=== PATIENT | male | born 2000 | race African-American/Black ===

== ENCOUNTER 2020-02-05 18:54 | Emergency (ER) | payer OTHER, SELFPAY ==
--- NOTE | ~2020-02-05 | CT_ITS ---
EXAMINATION: CTA chest EXAM DATE: 02/05/2020 20:51 INDICATION: Heart palpitations, mid chest pain. High blood pressure. TECHNIQUE: Spiral CTA of the chest (pulmonary arteries) was performed with 100 cc Omnipaque 350 intr avenous contrast injection. Images were acquired during the pulmonary arterial phase. Coronal maxi mum intensity projection 3D-reconstructions were created by the technologist on dedicated workstation . Axial, coronal and sagittal reformatted images were reviewed. The dose-length product (DLP) for t his examination was 221.06 mGy-cm. The exposure was tailored according to patient size (auto mA exp osure control), and iterative reconstruction (ASIR) was used as additional dose reduction technique. There is no prior study for comparison. FINDINGS: Pulmonary arteries are well opacified and without intraluminal filling defects. No thora cic aortic dissection. The lungs are clear. There are no pleural or pericardial effusions. Trach eobronchial tree is patent. There is no mediastinal, hilar or axillary lymphadenopathy. There is no pneumothorax. Heart normal in size. No evidence of coronary arterial calcification. Upper abd omen is unremarkable. The bones are unremarkable. IMPRESSION: 1. No acute cardiopulmonary findings. Reviewed, dictated and finalized at location A.
[2020-02-05 19:13] VITALS: BP 125/78; PULSE 87; RESP 18; TEMP 36.6; O2SAT 100
--- NOTE | 2020-02-05 19:43 | ECG_ITS ---
Measurements Intervals [place] Rate: 78 P: 60 [place]: 132 QRS: 67 QRSD: 105 T: 62 QT: 337 QTc: 384 Interpretive Statements SINUS RHYTHM WITH SINUS ARRHYTHMIA POSSIBLE LEFT VENTRICULAR HYPERTROPHY ST ELEVATION IN DIFFUSE LEADS- CONSIDER PERICARDITIS, INJURY OR EARLY REPOLARIZATION BASELINE ARTIFACT- I, II, III, AVR, AVL, AVF ABNORMAL ECG Electronically Signed On 02-05-2020 20:54:51 CDT by Cedrick Pagan D.O.
[2020-02-05 19:53] VITALS: BP 131/97; PULSE 86; RESP 20; O2SAT 100
[2020-02-05 19:59] LABS: Basophils Percent Auto 0.4 % (0.2-1.2); Eosinophils Absolute Auto 0.2 K/mm3 (0-0.3); Eosinophils Percent Auto 2.2 % (0-4.4); Hemoglobin 15.1 g/dL (14.0-18.0); Immature Granulocyte Absolute 0.03 K/mm3 (0.00-0.031); Immature Granulocyte Percent A 0.3 % (0-0.5); Lymphocytes Absolute Auto 3.44 K/mm3 (0.9-3.2); Lymphocytes Percent Auto 36.5 % (18.3-44.2); Mean Corpuscular HGB Conc 32.8 g/dl (32-36); Mean Corpuscular Hemoglobin 29.2 pg (26-34); Mean Corpuscular Volume 88.8 fl (80-100); Mean Platelet Volume 11.5 fl (7.4-10.4); Monocytes Absolute Auto 1.4 K/mm3 (0.1-0.6); Monocytes Percent Auto 14.4 % (2.6-8.5); Neutrophils Absolute Auto 4.3 K/mm3 (1.3-6.7); Neutrophils Percent Auto 46.2 % (45.5-73.1); Platelet Count Result 211 k/mm3 (150-375); Red Blood Count 5.18 M/mm3 (4.6-6.20); Red Cell Distribution Width 12.7 % (11.5-14.5); White Blood Count 9.4 K/mm3 (4.5-10.0)
--- NOTE | 2020-02-05 20:01 | ED.GENADULT ---
HPI - General Adult General Chief complaint: Recheck/Abnormal Lab/Rx Stated complaint: high bp Time Seen by Provider: 02/05/20 19:12 Source: patient and family (MOTHER) Mode of arrival: ambulatory Limitations: no limitations History of Present Illness HPI narrative: Patient presents with chief complaint of concern for intermittent dizziness and feelings of chest pressure and palpitation. Patient states that he saw his primary care provider on for further management of his symptoms he was unable to have lab work performed due to his father being transferred to an ICU in [place] for aortic rupture. 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 Patient states that he cannot stand and work for more than 2 hours before having symptoms. Patient states 2 years ago he had an episode of pericarditis so they are scared that that is returning. Patient states his blood pressure generally warranted in 150-160s over 100-120s. Patient states that he took a tablet of his lisinopril hydrochlorothiazide tablet and felt that he had some itching in his throat so he called his mother who came and picked him up from work and brought him to the emergency department. Patient does not have any itching or swelling to his throat at this time. Patient did not take any medications to alleviate those symptoms. Presently patient does not have any dizziness, chest pain, palpitations, shortness of breath, blurry vision, headache or any other symptoms. Patient and mother are concerned for patient's cardiac health due to his father's present condition. Patient denies any drug use, fevers, chills, nausea, vomiting, diarrhea. Patient denies having any other known health issues. Related Data Allergies Allergy/AdvReac Type Severity Reaction Status Date / Time No Known Allergies Allergy Mild Verified 11/11/18 21:47 Review of Systems Review of Systems: Narrative: CONSTITUTIONAL: Denies fever, chills, or sweats. EYES: Reports intermittent blurry vision denies visual changes, redness, or discharge. ENT: Denies rhinorrhea, congestion, sore throat, or otalgia. CARDIOVASCULAR: Reports intermittent chest pain, palpitations denies edema. RESPIRATORY: Denies cough or dyspnea. GASTROINTESTINAL: Denies abdominal pain, nausea, vomiting, or diarrhea. GENITOURINARY: Denies dysuria or hematuria. SKIN: Denies rash or itching. MUSCULOSKELETAL: Denies back pain, joint pain, or myalgia. NEUROLOGIC: Denies headache, numbness, dizziness, or weakness. PSYCHIATRIC: Denies anxiety or depression. [facility] Past Medical History Medical History (Updated 02/05/20 @ 21:13 by Tabitha Michelle PA-C) Hypertension Pericarditis Social History Social History (Updated 02/05/20 @ 21:09 by Tabitha Michelle PA-C) Smoking status: Never smoker Alcohol intake: never Other substance usage details: none Exam Narrative: Exam Narrative: GENERAL: Well-appearing, well-nourished, and in no acute distress. HEAD: Normocephalic, atraumatic. EYES: PERRLA and EOMI. ENT: Nares clear, no rhinorrhea or epistaxis. Mucous membranes moist. Oropharynx without tonsillar hypertrophy exudate or other lesions. Bilateral TMs pearly brock nonbulging NECK: Supple. No adenopathy or masses. CHEST: Clear to auscultation. No respiratory distress. No wheezes rales or rhonchi HEART: Regular rate and rhythm. No murmur heard. No chest pain with positional movements. Normal peripheral pulses. ABDOMEN: Soft, nontender, nondistended, normal active bowel sounds. EXTREMITIES: Normal range of motion. No edema. SKIN: Warm, dry, no rash. NEURO: No focal deficits. Alert and oriented x3. PSYCH: Normal mood and affect. Course Course Emergency Course: Review note from Dr. Darby's office on . Patient had a Holter monitor ordered which was supposed to be worn at time of work to evaluate states possible changes in cardia
[2020-02-05 20:09] LABS: Alanine Aminotransferase 18 U/L (4-50); Albumin Level 5.3 g/dL (3.5-5.1); Alkaline Phosphatase 78 U/L (38-126); Aspartate Amino Transferase 26 U/L (17-59); Bilirubin,Total 0.8 mg/dL (0.2-1.3); Blood Urea Nitrogen 21 mg/dL (9-20); Carbon Dioxide 27 mmol/L (22-30); Chloride 98 mmol/L (98-107); Estimated CRCL calculation 85 ml/min; Estimated Glomerular Filt Rate > 60; Glucose 86 mg/dL (75-110); Potassium 3.7 mmol/L (3.4-5.0); Sodium 140 mmol/L (137-145)
[2020-02-05 20:13] LABS: Add Urine Microscopic? NO; Appearance Urine Clear (Clear); Bilirubin Urine Negative (Negative); Blood Urine Negative (Negative); Color Urine Yellow (Yellow); Glucose Urine UA Negative (Negative); Ketones Urine Negative (Negative); Leukocyte Esterase Ur Negative LEU/UL (Negative); Nitrate Urine Negative (Negative); Protein Urine Negative (Negative); Specific Grav Ur 1.023 (1.001-1.035); Urobilinogen Urine Negative mg/dL (<2.0)
[2020-02-05 20:21] LABS: Troponin I < 0.012 ng/mL (0.000-0.034)
[2020-02-05 20:45] LABS: Amphetamine Screen Urine Negative (Negative); Barbiturate Screen Urine Negative (Negative); Benzodiazepines Screen Urine Negative (Negative); Cannabinoid Screen Urine Negative (Negative); Cocaine Screen Urine Negative (Negative); Methadone Screen Urine Negative (Negative); Opiate Screen Urine Negative (Negative); Phencyclidine Screen Urine Negative (Negative)
[2020-02-05 21:23] LABS: Free T4 Free Thyroxine Reflex 1.13 ng/dL (0.78-2.19)
[2020-02-05 21:40] VITALS: BP 148/90; PULSE 80; RESP 18; TEMP 36.7; O2SAT 98
== END 2020-02-05 21:41 | disposition home or self-care (01) ==
PROVIDERS: Physician Assistant; Emergency Provider Emergency Medicine; PCP Family Medicine
DX: R07.89 Other chest pain (principal); H53.8 Other visual disturbances; I10 Essential (primary) hypertension; R94.31 Abnormal electrocardiogram [ECG] [EKG]
CPT/HCPCS: 36415; 71275; 80053; 80307; 81003; 84439; 84443; 84480; 84484; 85025; 93005; 99284; Q9967

== ENCOUNTER 2020-02-08 09:19 | Outpatient (CLI) | payer OTHER, SELFPAY ==
--- NOTE | 2020-02-14 11:04 | WPDHOLTEREM ---
Holter/Event Monitor Holter/Event Monitor Date of procedure: 02/08/20 Procedure Type: 24 hour holter monitor Indications: Chest pain Conclusion: 1. 24 hour holter monitor on 02/08/20. 2. Underlying rhythm is sinus rhythm with sinus arrhythmia. HR range 35-179 bpm; average HR 69 bpm. 3. No premature supraventricular complexes. No supraventricular tachycardia. 4. There are 3 premature ventricular complexes. No ventricular tachycardia. 5. No sinoatrial or atrioventricular blocks. No significant pauses greater than 2 seconds. 6. Patient reports symptoms of palpitations and dizziness which demonstrate sinus rhythm, HR range 72-114 bpm.
== END 2020-02-08 09:20 | disposition home or self-care (01) ==
PROVIDERS: PCP Family Medicine; Visit Provider Nurse Practitioner Family
DX: R07.9 Chest pain, unspecified (principal)
CPT/HCPCS: 93225; 93226

== ENCOUNTER 2020-02-14 15:56 | Outpatient (CLI) | payer OTHER, SELFPAY ==
[2020-02-14 17:23] LABS: Free T4 Free Thyroxine 0.85 ng/mL (0.78-2.19)
== END 2020-02-14 15:57 | disposition home or self-care (01) ==
PROVIDERS: PCP Family Medicine; Visit Provider Physician Assistant Medical
DX: R79.89 Other specified abnormal findings of blood chemistry (principal)
CPT/HCPCS: 36415; 84439; 84443

== ENCOUNTER 2020-05-04 14:03 | Emergency (ER) | payer OTHER, MEDICAID, SELFPAY ==
--- NOTE | ~2020-05-04 | XR_ITS ---
XR chest 2V DATE: 05/04/2020 15:39 INDICATION: Dizziness when standing. Orthostatic hypotension. TECHNIQUE: PA and lateral views COMPARISON: 07/21/2017 two-view chest FINDINGS: Normal heart size. No hilar or mediastinal enlargement. No pulmonary infiltrate or consolid ation, pleural effusion or pulmonary vascular congestion or pneumothorax. Included skeletal structure s are unremarkable other than mild scoliosis. IMPRESSION: No active cardiopulmonary disease Reviewed, dictated and finalized at location A.
[2020-05-04 14:11] VITALS: BP 130/98; PULSE 84; RESP 18; TEMP 37.1; O2SAT 100
[2020-05-04 14:27] VITALS: O2SAT 100
--- NOTE | 2020-05-04 14:30 | ED.DIZZY ---
HPI - Dizziness General Chief Complaint: Syncope Stated Complaint: feels tingling, high bp Time Seen by Provider: 05/04/20 14:27 History of Present Illness HPI Narrative: Near syncopal event today at work. He has had this happen numerous times in the past. 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 He was frequently found to have orhtostatic hypotension. He reports not staying as well hydrated as he used to. Satishamparonly says that he had chest pain, but states that he has this all the time. Related Data Allergies Allergy/AdvReac Type Severity Reaction Status Date / Time lisinopril AdvReac Intermediate swelling Verified 05/01/20 09:33 in throat Review of Systems Review of Systems: All systems reviewed & are unremarkable except as noted in HPI and below Constitutional: Constitutional: Denies chills and Denies fever(s) Cardiovascular: Cardiovascular: Reports chest pain Respiratory: Respiratory: Reports dyspnea Gastrointestinal: Gastrointestinal: Denies abdominal pain, Denies nausea and Denies vomiting Neurologic: Reports dizziness and Denies syncope [facility] Past Medical History Medical History Hypertension Pericarditis Social History Social History Smoking status: Never smoker Alcohol intake: never Other substance usage details: none Gender identity (if verbalized by the patient): Male Exam Const: General: healthy appearing, no acute distress and alert Orientation/consciousness: patient oriented x3 HENMT: Head: normal to inspection Neck: Neck: normal visual inspection and no lymphadenopathy Chest: Chest palpation & inspection: no tenderness Resp: Effort & Inspection: normal respiratory effort Auscultation: clear to auscultation bilaterally, no rales, no rhonchi and no wheezes Cardio: Jugular venous distension: no JVD Rate: regular rate Rhythm: regular rhythm Heart sounds: no murmurs GI: Inspection: non-distended GI Palp: Yes Soft to palpation and No Tenderness to palpation present (GI) Skin: General skin exam: normal color Neuro: General: patient oriented x3 and moves all extremities Speech: normal speech Extrem: General: no edema Psych: Appearance: well kempt Affect: normal affect Course Vital Signs Vital signs: Vital Signs Temperature 37.1 C 05/04/20 14:11 Pulse Rate 84 05/04/20 14:11 Respiratory Rate 18 05/04/20 14:11 Blood Pressure 130/98 H 05/04/20 14:11 Pulse Oximetry 100 05/04/20 14:11 Temperature 37.1 C 05/04/20 14:11 Pulse Rate 87 05/04/20 16:33 Respiratory Rate 20 05/04/20 15:11 Blood Pressure 130/78 05/04/20 16:33 Pulse Oximetry 99 05/04/20 15:11 MDM - Dizziness MDM Narrative Medical decision making narrative: He has orhtostatic hypotension. Improved with fluids. He will likely need to follow-up with his campus recruiting coordinator. I discussed the case with Dr. Roy. He suggested starting him on metoprolol. On telemetry his heart rate frequently dipped into the 50s, so ultimately I chose not to do this. Medical Records Attestation: I reviewed the patient's medical records. Lab Data Attestation: I reviewed the patient's lab results. Result diagrams: 05/04/20 14:32 05/04/20 14:32 Labs: Lab Results 05/04/20 05/04/20 05/04/20 Range/Units 14:32 14:32 14:32 WBC 8.8 (4.5-10.0) K/mm3 RBC 5.15 (4.6-6.20) M/mm3 Hgb 15.3 (14.0-18.0) g/dL Hct 45.7 (42.0-52.0) % MCV 88.7 (80-100) fl MCH 29.7 (26-34) pg MCHC 33.5 (32-36) g/dl RDW 13.1 (11.5-14.5) % Plt Count 199 (150-375) k/mm3 MPV 11.7 H (7.4-10.4) fl Immature Gran % (Auto) 0.5 (0-0.5) % Neut % (Auto) 51.0 (45.5-73.1) % Lymph % (Auto) 31.2 (18.3-44.2) % [place] % (Auto) 15.0 H (2.6-8.5) % Eos % (Auto) 1
[2020-05-04 14:38] LABS: Basophils Percent Auto 0.5 % (0.2-1.2); Eosinophils Absolute Auto 0.2 K/mm3 (0-0.3); Eosinophils Percent Auto 1.8 % (0-4.4); Hematocrit 45.7 % (42.0-52.0); Hemoglobin 15.3 g/dL (14.0-18.0); Immature Granulocyte Absolute 0.04 K/mm3 (0.00-0.031); Immature Granulocyte Percent A 0.5 % (0-0.5); Lymphocytes Absolute Auto 2.74 K/mm3 (0.9-3.2); Lymphocytes Percent Auto 31.2 % (18.3-44.2); Mean Corpuscular HGB Conc 33.5 g/dl (32-36); Mean Corpuscular Hemoglobin 29.7 pg (26-34); Mean Corpuscular Volume 88.7 fl (80-100); Mean Platelet Volume 11.7 fl (7.4-10.4); Monocytes Absolute Auto 1.3 K/mm3 (0.1-0.6); Neutrophils Absolute Auto 4.5 K/mm3 (1.3-6.7); Platelet Count Result 199 k/mm3 (150-375); Red Blood Count 5.15 M/mm3 (4.6-6.20); Red Cell Distribution Width 13.1 % (11.5-14.5); White Blood Count 8.8 K/mm3 (4.5-10.0)
[2020-05-04 14:45] LABS: INR 1.3; Prothrombin Time 15.4 Seconds (11.1-14.7)
[2020-05-04 14:47] LABS: Partial Thromboplastin Time 31.1 SECONDS (22.3-36.8)
[2020-05-04 14:51] LABS: Blood Urea Nitrogen 19 mg/dL (9-20); Calcium 9.9 mg/dL (8.4-10.2); Carbon Dioxide 27 mmol/L (22-30); Chloride 102 mmol/L (98-107); Estimated CRCL calculation 93 ml/min; Estimated Glomerular Filt Rate > 60; Glucose 73 mg/dL (75-110); Potassium 3.7 mmol/L (3.4-5.0); Sodium 138 mmol/L (137-145)
[2020-05-04 15:02] LABS: Troponin I < 0.012 ng/mL (0.000-0.034)
[2020-05-04] MEDS: SODIUM CHLORIDE 0.9% IV 1,000 ML 999 ML IV CONT ×2 (15:09→16:48)
[2020-05-04 15:11] VITALS: BP 133/72; PULSE 72; RESP 20; O2SAT 99
[2020-05-04 15:30] VITALS: PULSE 74
--- NOTE | 2020-05-04 15:46 | ECG_ITS ---
Measurements Intervals [place] Rate: 65 P: 66 [place]: 129 QRS: 76 QRSD: 98 T: 61 QT: 341 QTc: 355 Interpretive Statements SINUS RHYTHM ST ELEVATION IN ANTEROLAT/INF LEADS- PROBABLY EARLY REPOLARIZATION BORDERLINE ECG Electronically Signed On 05-04-2020 16:00:55 CDT by Cedrick Pagan D.O.
[2020-05-04 16:33] VITALS: BP 110/74; BP 130/78; BP 80/69; PULSE 77; PULSE 82; PULSE 87
[2020-05-04 17:28] LABS: Amphetamine Screen Urine Negative (Negative); Barbiturate Screen Urine Negative (Negative); Benzodiazepines Screen Urine Negative (Negative); Cannabinoid Screen Urine Negative (Negative); Cocaine Screen Urine Negative (Negative); Methadone Screen Urine Negative (Negative); Opiate Screen Urine Negative (Negative); Phencyclidine Screen Urine Negative (Negative)
[2020-05-04 18:45] VITALS: BP 140/68; PULSE 65; RESP 16; O2SAT 100
== END 2020-05-04 18:56 | disposition home or self-care (01) ==
PROVIDERS: Emergency Provider Emergency Medicine; PCP Family Medicine
DX: I95.1 Orthostatic hypotension (principal); I10 Essential (primary) hypertension; I31.9 Disease of pericardium, unspecified; R94.31 Abnormal electrocardiogram [ECG] [EKG]
CPT/HCPCS: 36415; 71046; 80048; 80307; 84484; 85025; 85610; 85730; 93005; 96360; 96361; 99284; J7030

== ENCOUNTER 2020-05-18 13:42 | Outpatient (CLI) | payer OTHER, SELFPAY ==
--- NOTE | 2020-05-18 13:50 | ECHO_ITS ---
Patient Info Name: Eros Coreas Age: 20 years : 2000 Gender: Male Ht: 72 in Wt: 155 lbs BSA: 1.88 m2 HR: 52 bpm BP: 156 / 85 mmHg Technical Quality: Good Exam Date: 05/18/2020 2:05 PM Exam Location: [facility] Patient Status: Outpatient Admit Date: 05/18/2020 Staff Ordering Physician: Mary Ellen Medina PAC Pesticide Use Medical Coordinator: Suzanne Washington RDCS Attending Provider: Mary Ellen Medina PAC Referring Physician: Adam BARKER; Exam Type: CA echo doppler color flow Study Info Complete two-dimensional, color flow and Doppler transthoracic echocardiogram is performed. Summary 1. Left ventricular chamber dimension is mildly enlarged. 2. Left ventricular systolic function is normal, estimated at 60-65%. 3. The left ventricular diastolic function is normal. 4. E/e' 5 is not elevated. 5. There is trace tricuspid valve regurgitation. 6. No pulmonary hypertension, estimated pulmonary arterial systolic pressure is 21 mmHg. 7. There is trace pulmonic regurgitation. Left Ventricle E/e' 5 is not elevated. Left ventricular chamber dimension is mildly enlarged. Left ventricular systolic function is normal, estimated at 60-65%. The left ventricular diastolic function is normal. Right Ventricle Right ventricular chamber dimension is normal. Right ventricular systolic function is normal. Left Atria Left atrial chamber dimension is normal. Right Atria Right atrial chamber dimension is normal. Aortic Valve The aortic valve is trileaflet. There is no aortic valve stenosis. There is no aortic valve regurgitation. Pulmonic Valve There is trace pulmonic regurgitation. Mitral Valve There is no mitral valve stenosis. There is no mitral valve regurgitation. Tricuspid Valve There is trace tricuspid valve regurgitation. No pulmonary hypertension, estimated pulmonary arterial systolic pressure is 21 mmHg. Pericardium/Pleural There is no pericardial effusion. Inferior Vena Cava Normal inferior vena cava with >50% collapse upon inspiration consistent with normal right atrial pressure, 5 mmHg. Aorta The aortic root size at the sinus of Valsalva is normal. Left Ventricular Outflow Tract Name Value Normal LVOT 2D LVOT Diameter 2.0 cm LVOT Doppler LVOT Peak Gradient 8 mmHg LVOT Mean Gradient 4 mmHg LVOT VTI 30 cm LVOT VTI/AV VTI Ratio 1.1 LVOT Stroke Volume 97 ml LVOT CO 19.0 l/min LVOT CI 10.1 l/min/m2 Pulmonic Valve Name Value Normal PV Doppler PV Peak Gradient 4 mmHg PV Regurgitation Doppler IA Peak End Diastolic Velocity
== END 2020-05-18 13:43 | disposition home or self-care (01) ==
PROVIDERS: PCP Family Medicine; Visit Provider Physician Assistant Medical
DX: R07.89 Other chest pain (principal); I10 Essential (primary) hypertension
CPT/HCPCS: 93306

== ENCOUNTER 2020-09-19 07:28 | Outpatient (CLI) | payer OTHER, SELFPAY ==
--- NOTE | 2020-10-31 12:23 | P.SLEEP_ITS ---
Sleep Study - Home Unattended Date of Study: 09/19/20 Ordering Provider: Cedrick Pagan DO Interpreting Physician: Amanda Gonzalez MD Home Sleep Study Type: Watch PAT Height: 1.8 m Weight: 71.668 kg Body Mass Index: 22.0 [place]: 19 Reason for Sleep Study Hypersomnolence Sleep History Eros Coreas is a 20 year-old man with a history of hypertension and pericarditis. He was referred for a sleep test due to excessive daytime sleepiness with an [place] Sleepiness Scale score all 19. [facility] Past Medical History Medical History Hypertension Pericarditis Social History Social History Smoking status: Never smoker Alcohol intake: never Other substance usage details: none Gender identity (if verbalized by the patient): Male Medications Home Medications Medication Instructions Recorded Confirmed Type losartan 25 mg tablet 25 mg PO DAILY #90 tablet 08/14/20 10/01/20 Rx Sleep Procedure The sleep study was completed using WatchPAT a technically adequate device with seven channels: peripheral arterial tone, actigraphy, body position, snore, respiratory movement, pulse oximetry, sleep staging, and heart rate. Prior to using the device, the patient received verbal and written instructions for its application and was provided with the help desk phone number for additional telephonic instruction with 24-hour availability of qualified personnel to answer questions. Sleep Architecture The recording time was 8 hours 37 minutes. The sleep time was 7 hours 0 minutes . The patient spent 31% of this home sleep test in REM sleep. He spent 47% of the study in light sleep. He spent 21% of the study in deep sleep. This is normal sleep architecture. He spent 18% of the study awake and 81% of the study sleeping. Respiratory Analysis The apnea-hypopnea index is 0.7, normal. He had 5 events. These were all obstructive events. He had no central events. There is no evidence of Mitch- Guzman respirations. Oximetry Data The patient had 5 desaturations and spent no time below 88% saturation. The mean saturation was 87%. The minimum was 91%. The saturation during jorge was 94%. This shows normal oxygenation. Snoring Profile The patient snored very little. He snored during 3.7% of his sleep time. He snored louder than 45 decibels for 3.2 minutes. Cardiac Profile Lowest heart rate was 51 and maximum heart rate was 89, normal range. Assessment and Plan Assessment and Plan (1) Hypersomnia: Code(s): G47.10 - Hypersomnia, unspecified Status: Acute Assessment and Plan: This home sleep test on Sep 19, 2020 shows normal breathing during sleep with mild snoring. There is no evidence of sleep-disordered breathing. His AHI was 0.7. Home sleep tests are not a accurate as in-lab nocturnal polysomnograms. if there is a significant concern for sleep disordered breathing consider a sleep study in the sleep lab. The patient has a normal body mass index a weight loss would not be expected to help. He has normal sleep architecture. He has normal sleep efficiency. If he is getting between 7 and 8 hours of sleep routinely and is still sleepy, consider sleep medicine referral for evaluation fo possible Causes for his hypersomnia including narcolepsy or idiopathic hypersomnia.
[2020-10-31 12:43] VITALS: BMI 22.0
== END 2020-09-19 07:29 | disposition home or self-care (01) ==
LOC: ANHCSM 07:28
PROVIDERS: PCP Family Medicine; Visit Provider Internal Medicine Cardiovascular Disease
DX: G47.10 Hypersomnia, unspecified (principal)
CPT/HCPCS: 95800

== ENCOUNTER 2020-09-25 10:07 | Emergency (ER) | payer OTHER, SELFPAY ==
--- NOTE | ~2020-09-25 | XR_ITS ---
XR chest 2V DATE: 09/25/2020 10:40 INDICATION: Chest pain. Dizziness. Hypertension. TECHNIQUE: PA and lateral views COMPARISON: 05/04/2020 PA and lateral chest FINDINGS: Thoracic scoliosis. No pulmonary infiltrate or consolidation, pleural effusion or pulmonary vascular congestion or pneumo thorax. Heart size is normal. No hilar or mediastinal enlargement. IMPRESSION: No active cardiopulmonary disease Reviewed, dictated and finalized at location A.
--- NOTE | 2020-09-25 10:17 | ECG_ITS ---
Measurements Intervals [place] Rate: 60 P: 57 [place]: 127 QRS: 64 QRSD: 100 T: 54 QT: 344 QTc: 346 Interpretive Statements SINUS RHYTHM WITH SINUS ARRHYTHMIA RSR' IN V1 OR V2, CONSIDER RIGHT VENTRICULAR HYPERTROPHY OR RIGHT VCD ST ELEVATION WITH PEAKED T WAVES- PROBABLY EARLY REPOLARIZATION BORDERLINE ECG Electronically Signed On 09-25-2020 11:46:36 CDT by Cedrick Pagan D.O.
[2020-09-25 10:18] VITALS: BP 143/76; PULSE 80; RESP 18; TEMP 36.6; O2SAT 100
--- NOTE | 2020-09-25 10:30 | ED.CHESTPAIN ---
HPI - Chest Pain General Chief Complaint: Chest Pain Stated Complaint: chest pain Time Seen by Provider: 09/25/20 10:15 Source: patient Mode of arrival: ambulatory Limitations: no limitations History of Present Illness HPI narrative: This is a 20 year old male that presents to the ER for intermittent sharp left sided chest pain this morning. Reports he has had 4-5 bouts of this. The chest pain lasted very briefly. He was sitting down when this happened. Denies any current chest pain. Reports he does feel short of breath. Reports he has been having these pains for about the last 5 years. 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 He takes losartan for hypertension. Also reports that he feels lightheaded when he stands up and that has been ongoing for years as well. Denies fever, cough, or lower extremity edema. Related Data Allergies Allergy/AdvReac Type Severity Reaction Status Date / Time lisinopril AdvReac Intermediate swelling Verified 09/25/20 10:21 in throat Review of Systems Review of Systems: Narrative: CONSTITUTIONAL: Denies fever CARDIOVASCULAR: Denies chest pain, palpitations. Denies edema. RESPIRATORY: Reports dyspnea. Denies cough PSYCHIATRIC: Reports anxiety All systems reviewed & are unremarkable except as noted in HPI and below PMFSH Past Medical History Medical History (Updated 09/25/20 @ 14:48 by Deborah Avilez PA-C) Hypertension Pericarditis Social History Social History Smoking status: Never smoker Alcohol intake: never Other substance usage details: none Gender identity (if verbalized by the patient): Male Exam Narrative: Exam Narrative: GENERAL: Well-appearing, well-nourished, and in no acute distress. HEAD: Normocephalic, atraumatic. EYES: EOMI. NECK: Supple. No adenopathy or masses. No carotid bruits or JVD CHEST: Clear to auscultation. No respiratory distress. No wheezes rales or rhonchi HEART: Regular rate and rhythm. No murmur heard. Normal peripheral pulses. ABDOMEN: Soft, nontender, nondistended, normal active bowel sounds. EXTREMITIES: Normal range of motion. No edema. SKIN: Warm, dry, no rash. NEURO: No focal deficits. Alert and oriented x3. PSYCH: Normal mood and affect Course Vital Signs Vital signs: Vital Signs Temperature 97.8 F 09/25/20 10:18 Pulse Rate 80 09/25/20 10:18 Respiratory Rate 18 09/25/20 10:18 Blood Pressure 143/76 H 09/25/20 10:18 Pulse Oximetry 100 09/25/20 10:18 Temperature 97.8 F 09/25/20 10:18 Pulse Rate 72 09/25/20 14:31 Respiratory Rate 18 09/25/20 10:18 Blood Pressure 137/79 09/25/20 14:31 Pulse Oximetry 100 09/25/20 10:18 MDM - Chest Pain MDM Narrative Medical decision making narrative: Patient presents to the emergency department for intermittent sharp chest pain this morning. Also reports he feels lightheaded when he stands up. Reports the symptoms have been ongoing for the last couple of years. He has had a recent echo and Holter monitor done by his communications program manager. Patient is not orthostatic. CBC and metabolic panel without concerning findings. D-dimer is not elevated. Baseline and 3-hour troponin are negative. Chest x-ray without concerning findings. EKG shows nonspecific ST changes likely consistent with early repolarization. Patient was updated on case findings. His heart score is 2. He is stable and felt appropriate for further outpatient evaluation. He is to follow-up with his communications program manager. He was given warnings to return to the ER Lab Data Attestation: I reviewed the patient's lab results. Result diagrams: 09/25/20 10:34 09/25/20 10:34 Labs: Lab Results 09/25/20 09/25/20 09/25/20 Range/Units 10:34 10:34 10:34 WBC 7.3 (4.5-10.0) K/mm3 RBC 4.80 (4.6-6.20) M/mm3 Hgb 14.3 (14.0-18.0) g/dL Hct 43.6 (42.0-52.0) % MCV 90.8 (80-100) fl MCH 29.8 (26-34) pg MCHC 32.8 (32
[2020-09-25 10:44] LABS: Basophils Percent Auto 0.5 % (0.2-1.2); Eosinophils Absolute Auto 0.1 K/mm3 (0-0.3); Eosinophils Percent Auto 1.6 % (0-4.4); Hematocrit 43.6 % (42.0-52.0); Hemoglobin 14.3 g/dL (14.0-18.0); Immature Granulocyte Absolute 0.05 K/mm3 (0.00-0.031); Immature Granulocyte Percent A 0.7 % (0-0.5); Lymphocytes Absolute Auto 1.68 K/mm3 (0.9-3.2); Lymphocytes Percent Auto 23.1 % (18.3-44.2); Mean Corpuscular HGB Conc 32.8 g/dl (32-36); Mean Corpuscular Hemoglobin 29.8 pg (26-34); Mean Corpuscular Volume 90.8 fl (80-100); Mean Platelet Volume 11.1 fl (7.4-10.4); Monocytes Absolute Auto 1.1 K/mm3 (0.1-0.6); Monocytes Percent Auto 14.4 % (2.6-8.5); Neutrophils Absolute Auto 4.3 K/mm3 (1.3-6.7); Neutrophils Percent Auto 59.7 % (45.5-73.1); Platelet Count Result 211 k/mm3 (150-375); Red Cell Distribution Width 12.8 % (11.5-14.5); White Blood Count 7.3 K/mm3 (4.5-10.0)
[2020-09-25] MEDS: ASPIRIN 81 MG CHEWABLE TABLET 324 MG PO (10:57)
[2020-09-25 10:59] LABS: Anion Gap 10 mmol/L (8-16); Blood Urea Nitrogen 19 mg/dL (9-20); Calcium 9.8 mg/dL (8.4-10.2); Carbon Dioxide 29 mmol/L (22-30); Chloride 103 mmol/L (98-107); Estimated CRCL calculation 112 ml/min; Estimated Glomerular Filt Rate > 60; Glucose 89 mg/dL (75-110); Potassium 4.1 mmol/L (3.4-5.0); Sodium 142 mmol/L (137-145)
[2020-09-25 11:01] LABS: INR 1.2; Partial Thromboplastin Time 30.2 SECONDS (22.3-36.8); Prothrombin Time 15.1 Seconds (11.1-14.7)
[2020-09-25 11:03] LABS: D Dimer 0.29 ug/mL (<0.48)
[2020-09-25 11:32] LABS: Troponin I < 0.012 ng/mL (0.000-0.034)
[2020-09-25] MEDS: SODIUM CHLORIDE 0.9% IV 1,000 ML 999 ML IV CONT (13:07)
--- NOTE | 2020-09-25 13:58 | PC.NURSE ---
1345 - Pt reporting numbness to hand and cool feeling to arm after admin of IV fluids. IV site WNL with no swelling, redness, streaking, or leaking. Pt declines wanting IV out and new IV placed.
[2020-09-25 14:02] LABS: Troponin I < 0.012 ng/mL (0.000-0.034)
[2020-09-25 14:25] VITALS: BP 142/69; PULSE 70
[2020-09-25 14:28] VITALS: BP 140/80; PULSE 76
[2020-09-25 14:31] VITALS: BP 137/79; PULSE 72
--- NOTE | 2020-09-25 14:45 | PC.NURSE ---
1990 - Patient's mother called and updated on plan of care. Mother coming to pick him up in 30 mins.
[2020-09-25 15:03] VITALS: BP 136/78; PULSE 67; RESP 14; O2SAT 98
--- NOTE | 2020-10-08 11:35 | PC.NURSE ---
1508 NS infusion complete with total volume infused of 1000 mL as ordered. This is a late entry.
== END 2020-09-25 15:18 | disposition home or self-care (01) ==
PROVIDERS: Emergency Provider Emergency Medicine; PCP Family Medicine
DX: R07.9 Chest pain, unspecified (principal); I10 Essential (primary) hypertension; R94.31 Abnormal electrocardiogram [ECG] [EKG]
CPT/HCPCS: 36415; 71046; 80048; 84484; 85025; 85380; 85610; 85730; 93005; 96360; 96361; 99284; A9270; J7030

== ENCOUNTER 2021-06-04 10:07 | Emergency (ER) | payer OTHER, SELFPAY ==
[2021-06-04] VITALS (27 sets, daily range): BP systolic 134–167; BP diastolic 66–96; PULSE 53–99; RESP 15–33; TEMP 36.3; O2SAT 96–100
--- NOTE | ~2021-06-04 | XR_ITS ---
EXAMINATION: XR chest 2V EXAM DATE: 06/04/2021 11:51 INDICATION: Chest pain, shortness of breath. History of enlarged heart. TECHNIQUE: Frontal and lateral projections of the chest obtained and reviewed. There is no prior dirk dy for comparison. FINDINGS: The lungs are clear. There are no pleural effusions. The cardiomediastinal silhouette is well within normal limits. There is no pneumothorax suspected. The bones and soft tissues are unrem arkable. IMPRESSION: Normal chest x-ray exam. Reviewed, dictated and finalized at location B. IMPRESSION: Normal chest x-ray exam.
--- NOTE | 2021-06-04 10:28 | ECG_ITS ---
Measurements Intervals [place] Rate: 70 P: 61 [place]: 137 QRS: 61 QRSD: 94 T: 54 QT: 360 QTc: 388 Interpretive Statements SINUS RHYTHM POSSIBLE LEFT ATRIAL ENLARGEMENT INCOMPLETE RIGHT BUNDLE BRANCH BLOCK DELAYED PRECORDIAL R/S TRANSITION BORDERLINE ECG Electronically Signed On 06-04-2021 10:45:08 CDT by Cedrick Pagan D.O.
[2021-06-04 10:49] LABS: Basophils Percent Auto 0.4 % (0.2-1.2); Eosinophils Absolute Auto 0.2 K/mm3 (0-0.3); Eosinophils Percent Auto 2.8 % (0-4.4); Hematocrit 46.4 % (42.0-52.0); Hemoglobin 15.2 g/dL (14.0-18.0); Immature Granulocyte Absolute 0.04 K/mm3 (0.00-0.031); Immature Granulocyte Percent A 0.6 % (0-0.5); Lymphocytes Absolute Auto 1.97 K/mm3 (0.9-3.2); Lymphocytes Percent Auto 27.3 % (18.3-44.2); Mean Corpuscular HGB Conc 32.8 g/dl (32-36); Mean Corpuscular Hemoglobin 29.6 pg (26-34); Mean Corpuscular Volume 90.3 fl (80-100); Mean Platelet Volume 11.1 fl (7.4-10.4); Neutrophils Percent Auto 54.9 % (45.5-73.1); Platelet Count Result 193 k/mm3 (150-375); Red Blood Count 5.14 M/mm3 (4.6-6.20); White Blood Count 7.2 K/mm3 (4.5-10.0)
[2021-06-04 10:59] LABS: Anion Gap 11 mmol/L (8-16); Blood Urea Nitrogen 20 mg/dL (9-20); Calcium 10.1 mg/dL (8.4-10.2); Carbon Dioxide 27 mmol/L (22-30); Chloride 103 mmol/L (98-107); Estimated Glomerular Filt Rate > 60; Glucose 103 mg/dL (75-110); Potassium 3.8 mmol/L (3.4-5.0); Sodium 141 mmol/L (137-145)
--- NOTE | 2021-06-04 10:59 | ED.GENADULT ---
HPI - General Adult General Chief complaint: Unspecified Stated complaint: High Blood Pressure Time Seen by Provider: 06/04/21 10:26 Source: patient Mode of arrival: ambulatory Limitations: no limitations History of Present Illness HPI narrative: Patient is a 21 year old male who presents from work this am with chest pain, shortness of breath and hypertension. Patient reports dizziness and lightheaded which has resolved at this time. Patient reports cardiac history of pericarditis and valve problems and enlarged left heart per patient. He reports medication compliance with losartan. He denies nausea, vomiting and diarrhea. He denies all other complaints at this time. MD complaint: HTN, chest pain, SOB Related Data Allergies Allergy/AdvReac Type Severity Reaction Status Date / Time lisinopril AdvReac Intermediate swelling Verified 06/04/21 10:55 in throat Review of Systems Review of Systems: Narrative: CONSTITUTIONAL: Denies fever, chills, or sweats. EYES: Denies visual changes, redness, or discharge. ENT: Denies rhinorrhea, congestion, sore throat, or otalgia. CARDIOVASCULAR: Reports chest pain, denies palpitations, or edema. RESPIRATORY: Denies cough, reports mild dyspnea. GASTROINTESTINAL: Denies abdominal pain, nausea, vomiting, or diarrhea. GENITOURINARY: Denies dysuria or hematuria. SKIN: Denies rash or itching. MUSCULOSKELETAL: Denies back pain, joint pain, or myalgia. NEUROLOGIC: Denies headache, numbness, or weakness. Reports dizziness and lightheaded PSYCHIATRIC: Denies anxiety or depression. [facility] Past Medical History Medical History BMI 32.0-32.9,adult Hypertension Pericarditis Family History Family History Father Hypertension AAA (abdominal aortic aneurysm) Mother Hypertension Sibling No problems noted. 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 Please see nursing chart for further information. There is no relevant family history pertinent to the presenting complaint. Exam Narrative: Exam Narrative: GENERAL: Well-appearing, well-nourished, and in no acute distress. HEAD: Normocephalic, atraumatic. EYES: EOMI. No redness or drainage. Conjunctiva are normal. ENT: Mucous membranes pink and moist. CHEST: No respiratory distress. Clear to auscultation. HEART: Regular rate and rhythm. No murmur appreciated. Normal peripheral pulses. GI: Soft, nontender without rebound, or guarding. No distention. MUSCULOSKELETAL: No bony tenderness. EXTREMITIES: Normal range of motion. No edema. SKIN: Warm, dry, no rash. NEURO: No focal deficits. Alert and oriented x3. Gait steady. PSYCH: Normal affect. No signs of depression or anxiety. Course Vital Signs Vital signs: Vital Signs Temperature 36.3 C L 06/04/21 10:16 Pulse Rate 86 06/04/21 10:16 Respiratory Rate 18 06/04/21 10:16 Blood Pressure 147/95 H 06/04/21 10:16 Pulse Oximetry 100 06/04/21 10:16 Temperature 36.3 C L 06/04/21 10:16 Pulse Rate 64 06/04/21 14:46 Respiratory Rate 16 06/04/21 14:46 Blood Pressure 139/76 06/04/21 14:46 Pulse Oximetry 100 06/04/21 14:46 Reviewed. Patient has been instructed to follow-up with his PCP regarding his blood pressure. Medical Decision Making MDM Narrative Medical decision making narrative: Patient is afebrile and nontoxic at this time. Patient's labs are
[2021-06-04 11:18] LABS: Large Platelets Present; Platelet Estimate Adequate (Adequate)
[2021-06-04 11:38] LABS: Troponin I < 0.012 ng/mL (0.000-0.034)
[2021-06-04 11:45] LABS: D Dimer 0.27 ug/mL (<0.48)
[2021-06-04 14:24] LABS: Troponin I < 0.012 ng/mL (0.000-0.034)
== END 2021-06-04 14:47 | disposition home or self-care (01) ==
PROVIDERS: Emergency Provider Nurse Practitioner; PCP Family Medicine
DX: I10 Essential (primary) hypertension (principal); I31.9 Disease of pericardium, unspecified; I45.10 Unspecified right bundle-branch block; R94.31 Abnormal electrocardiogram [ECG] [EKG]
CPT/HCPCS: 36415; 71046; 80048; 84484; 85025; 85380; 93005; 99284

== ENCOUNTER → 2021-11-26 07:38 | Outpatient (CLI) | payer OTHER, SELFPAY ==
[2021-11-27 03:58] LABS: SARS-CoV-2 RNA PCR Positive
== END ==
PROVIDERS: PCP Family Medicine; Visit Provider Nurse Practitioner Family
DX: U07.1 COVID-19 (principal)
CPT/HCPCS: C9803; U0003; U0005